=== PATIENT | female | born 1970 | race Two or more races ===

== ENCOUNTER 2023-08-20 02:33 | Emergency (ER) | payer BC ==
[~2023-08-20] VITALS: Ht 160 cm; Wt 68.0 kg
[2023-08-20] MEDS ORDERED: ATIVAN0.5 M1 PO (02:53)
== END 2023-08-20 05:03 | disposition home or self-care (01) ==
LOC: ER 02:34
DX: R19.7 Diarrhea, unspecified (principal); Z88.8 Allergy status to other drugs, medicaments and biological substances

== ENCOUNTER 2023-08-20 19:33 | Emergency (ER) | payer BC ==
[~2023-08-20] VITALS: Ht 160 cm; Wt 66.2 kg
[~2023-08-20 19:33] MED LIST: ATIVAN0.5 M1 PO
[2023-08-20 21:06] LABS: HEMATOCRIT 36.4 % (36.0-45.00); HEMOGLOBIN 12.1 g/dL (12.0-15.00); MEAN CELL VOLUME 85.6 fL (80.00-100.00); MEAN CORPUSCULAR HEMOGLOBIN 28.4 pg (27.00-32.0); MEAN CORPUSCULAR HGB CONC 33.2 g/dl (32.0-36.0); PLATELET COUNT 222 K/uL (150-450); RED BLOOD COUNT 4.25 M/uL (4.00-6.00); RED CELL DISTRIBUTION WIDTH 13.1 % (11.5-14.5)
== END 2023-08-21 01:05 | disposition home or self-care (01) ==
LOC: ER
PROVIDERS: General Practice
DX: B34.9 Viral infection, unspecified (principal); Z91.040 Latex allergy status; Z88.8 Allergy status to other drugs, medicaments and biological substances; Z20.822 Contact with and (suspected) exposure to COVID-19